=== PATIENT | male | born 1990 | race Caucasian/White ===

== ENCOUNTER 2017-09-17 13:26 | Emergency (ER) | payer OTHER, BC ==
[~2017-09-17] VITALS: Wt 93.0 kg
[~2017-09-17 13:26] MED LIST: DOXYCYCLINE100 M2 PO; KEFLEX500 MG PO; MOTRIN800 MG PO; VICODIN 5/500 505 MG PO
[2017-09-17] MEDS ORDERED: Motrin,Rufen800 MG PO (16:00)
[2017-09-17] MEDS ORDERED: CYCLOBENZAPRINE5 M3 PO (16:00)
== END 2017-09-17 16:20 | disposition home or self-care (01) ==
LOC: ED 13:26
DX: S09.90XA Unspecified injury of head, initial encounter (principal); S00.81XA Abrasion of other part of head, initial encounter; V43.52XA Car driver injured in collision with other type car in traffic accident, initial encounter; Y93.89 Activity, other specified; Y92.488 Other paved roadways as the place of occurrence of the external cause; Y99.8 Other external cause status

== ENCOUNTER 2018-04-09 18:27 | Emergency (ER) | payer BC ==
[~2018-04-09] VITALS: Wt 90.7 kg
[~2018-04-09 18:27] MED LIST changes: +CYCLOBENZAPRINE5 M3 PO; +Motrin,Rufen800 MG PO
[2018-04-09] MEDS ORDERED: CYCLOBENZAPRINE5 M3 PO (19:54)
[2018-04-09] MEDS ORDERED: Motrin,Rufen800 MG PO (19:54)
[2018-04-09] MEDS ORDERED: MEDROL DOSEPAK4 MG PO (19:54)
== END 2018-04-09 20:04 | disposition home or self-care (01) ==
LOC: ED 18:27
DX: M54.16 Radiculopathy, lumbar region (principal); X58.XXXA Exposure to other specified factors, initial encounter; Y93.89 Activity, other specified; Y92.89 Other specified places as the place of occurrence of the external cause; Y99.8 Other external cause status

== ENCOUNTER 2020-06-26 17:17 | Emergency (ER) | payer BC ==
[~2020-06-26] VITALS: Ht 195.5 cm; Wt 90.7 kg
[~2020-06-26 17:17] MED LIST changes: +MEDROL DOSEPAK4 MG PO
[2020-06-26 18:05] LABS: HEMATOCRIT 53.5 % (42.0-52.0); MEAN CELL VOLUME 85.9 fl (80.0-94.0); MEAN CORPUSCULAR HGB 29.9 pg (27.0-31.0); MEAN CORPUSCULAR HGB CONC 34.8 g/dl (33.0-37.0); MEAN PLATELET VOLUME 10.2 fl (9.6-12.3); PLATELET COUNT AUTOMATED 229 10*3/uL (130-400); RED BLOOD COUNT 6.23 10*6/uL (4.50-5.90); RED CELL DISTRI WIDTH 11.7 % (0-14.5); WHITE BLOOD COUNT 11.3 10*3/uL (4.8-10.8)
[2020-06-26 18:14] LABS: INTERNATIONAL NORM RATIO 1.1 (2.0-3.5)
[2020-06-26 18:21] LABS: PLATELET SUFFICIENCY NORMAL (NORMAL); TOTAL CELLS COUNTED 100 #CELLS
[2020-06-26 18:22] LABS: ALBUMIN 4.5 gm/dl (3.1-4.5); ALKALINE PHOSPHATASE 63 U/L (45-117); BUN 21 mg/dl (7-24); CHLORIDE 103 mmol/L (98-107); CREATININE 1.18 mg/dL (0.70-1.30); LIPASE 101 U/L (73-393); POTASSIUM 4.6 mmol/L (3.5-5.1); SGOT/AST 12 IU/L (3-35); SGPT/ALT 19 U/L (12-78); SODIUM 135 mmol/L (136-145); TOTAL PROTEIN 8.4 gm/dL (6.4-8.2); TROPONIN I 0.016 ng/ml (<0.045)
[2020-06-26] MEDS ORDERED: ZOFRAN4 MG PO (21:43)
[2020-06-26] MEDS ORDERED: CIPRO500 MG PO (21:43)
[2020-06-26] MEDS ORDERED: FLAGYL500 MG PO (21:43)
== END 2020-06-26 22:00 | disposition home or self-care (01) ==
LOC: ED 17:17
PROVIDERS: Physician Assistant
DX: K52.9 Noninfective gastroenteritis and colitis, unspecified (principal); Z20.822 Contact with and (suspected) exposure to COVID-19; Z79.899 Other long term (current) drug therapy

== ENCOUNTER 2020-08-05 06:40 | Emergency (ER) | payer BC ==
[~2020-08-05] VITALS: Wt 90.7 kg
[~2020-08-05 06:40] MED LIST changes: +CIPRO500 MG PO; +FLAGYL500 MG PO; +ZOFRAN4 MG PO
[2020-08-05 08:00] LABS: BASO % 0.7 % (0.0-1.0); EOS # 0.1 10*3/uL (0.0-0.4); EOS % 1.1 % (1.0-4.0); HEMATOCRIT 44.2 % (42.0-52.0); LYMPH # 2.8 10*3/uL (1.3-4.4); LYMPH % 50.5 % (27.0-41.0); MEAN CORPUSCULAR HGB 29.4 pg (27.0-31.0); MEAN CORPUSCULAR HGB CONC 34.6 g/dl (33.0-37.0); MEAN PLATELET VOLUME 9.2 fl (9.6-12.3); MONO # 0.6 10*3/uL (0.1-1.0); MONO % 10.3 % (3.0-9.0); PLATELET COUNT AUTOMATED 217 10*3/uL (130-400); RED CELL DISTRI WIDTH 11.7 % (0-14.5); WHITE BLOOD COUNT 5.5 10*3/uL (4.8-10.8)
[2020-08-05 08:14] LABS: ALKALINE PHOSPHATASE 64 U/L (45-117); BUN 10 mg/dl (7-24); CHLORIDE 103 mmol/L (98-107); CREATININE 0.88 mg/dL (0.70-1.30); POTASSIUM 4.1 mmol/L (3.5-5.1); SGOT/AST 20 IU/L (3-35); SGPT/ALT 19 U/L (12-78); SODIUM 139 mmol/L (136-145); TOTAL PROTEIN 7.1 gm/dL (6.4-8.2)
== END 2020-08-05 08:32 | disposition home or self-care (01) ==
LOC: ED 06:40
PROVIDERS: Internal Medicine
DX: R59.9 Enlarged lymph nodes, unspecified (principal)

== ENCOUNTER → 2020-08-07 | Outpatient (CLI) | payer BC | END | disposition home or self-care (01) | LOC: LAB 13:20 | PROVIDERS: ATTEND Family Medicine | DX: J02.9 Acute pharyngitis, unspecified (principal); R59.1 Generalized enlarged lymph nodes ==

== ENCOUNTER → 2020-08-24 | Outpatient (CLI) | payer BC | END | disposition home or self-care (01) | LOC: US 14:29 | PROVIDERS: ATTEND Family Medicine | DX: R22.1 Localized swelling, mass and lump, neck (principal) ==

== ENCOUNTER → 2020-09-08 | Outpatient (CLI) | payer BC | END | disposition home or self-care (01) | LOC: CT 09:00 | PROVIDERS: ATTEND Family Medicine | DX: R22.1 Localized swelling, mass and lump, neck (principal) ==

== ENCOUNTER → 2021-04-09 | Outpatient (CLI) | payer BC | END | disposition home or self-care (01) | LOC: COVID19 16:05 | PROVIDERS: ATTEND Internal Medicine | DX: Z11.52 Encounter for screening for COVID-19 (principal) ==

== ENCOUNTER → 2021-10-10 | Emergency (ER) | payer BC ==
[~2021-10-10] VITALS: Ht 187.9 cm; Wt 97.5 kg
[2021-10-10 23:21] LABS: BASO % 0.4 % (0.0-1.0); EOS # 0.1 10*3/uL (0.0-0.4); EOS % 1.9 % (1.0-4.0); HEMATOCRIT 45.9 % (42.0-52.0); LYMPH # 1.4 10*3/uL (1.3-4.4); LYMPH % 30.4 % (27.0-41.0); MEAN CELL VOLUME 85.5 fl (80.0-94.0); MEAN CORPUSCULAR HGB 29.6 pg (27.0-31.0); MEAN CORPUSCULAR HGB CONC 34.6 g/dl (33.0-37.0); MEAN PLATELET VOLUME 9.6 fl (9.6-12.3); MONO # 0.5 10*3/uL (0.1-1.0); MONO % 11.4 % (3.0-9.0); NEUT # 2.6 10*3/uL (2.3-7.9); NEUT % 55.7 % (47.0-73.0); PLATELET COUNT AUTOMATED 162 10*3/uL (130-400); RED BLOOD COUNT 5.37 10*6/uL (4.50-5.90); RED CELL DISTRI WIDTH 11.7 % (0-14.5); WHITE BLOOD COUNT 4.7 10*3/uL (4.8-10.8)
[2021-10-10 23:35] LABS: ALKALINE PHOSPHATASE 64 U/L (45-117); BUN 12 mg/dl (7-24); CHLORIDE 104 mmol/L (98-107); CREATININE 0.92 mg/dL (0.70-1.30); POTASSIUM 4.4 mmol/L (3.5-5.1); SGOT/AST 22 IU/L (3-35); SGPT/ALT 19 U/L (12-78); SODIUM 137 mmol/L (136-145)
== END ==
LOC: ED 22:37
PROVIDERS: Internal Medicine
DX: U07.1 COVID-19 (principal)

== ENCOUNTER 2023-03-26 19:16 | Emergency (ER) | payer BC ==
[~2023-03-26] VITALS: Ht 195.5 cm; Wt 97.5 kg
[~2023-03-26 19:16] MED LIST changes: +MELOXICAM15 MG PO
[2023-03-26] MEDS ORDERED: DICYCLOMINE HYD10 MG PO (19:41)
== END 2023-03-26 22:19 | disposition home or self-care (01) ==
LOC: ED 19:16
DX: B34.9 Viral infection, unspecified (principal); Z86.16 Personal history of COVID-19; Z20.822 Contact with and (suspected) exposure to COVID-19